=== PATIENT | female | born 1955 | race Caucasian/White ===

== ENCOUNTER 2022-12-20 10:57 | Emergency (ER) | payer MEDICARE ==
[2022-12-20 11:15] VITALS: O2SAT 98
[2022-12-20] MEDS ORDERED: TETANUS/DIPHTHERIA/PERTUSSIS 0.5 ML SYRINGE IM ONE (11:29)
--- NOTE | 2022-12-20 11:33 | ED Physician Documentation ---
PD HPI UPPER EXT INJURY - Stated complaint Stated Complaint: RT PINKY LAC - Chief complaint Chief Complaint: Laceration - History obtained from History obtained from: Patient - Additonal information Additional information: Patient is a 67-year-old presenting for evaluation of laceration to her right pinky finger that occurred this morning while slicing sweet potatoes on a mandolin. She does not take a blood thinner. She is unsure of her last tetanus. She was unable to get the bleeding to stop with several Band-Aids. Review of Systems Skin: reports: Laceration (s) Musculoskeletal: denies: Extremity pain PD PAST MEDICAL HISTORY - Past Medical History Past Medical History: No - Past Surgical History Past Surgical History: Yes Ortho: Shoulder arthroplasty /[employer]: Tubal ligation - Present Medications Home Medications: Ambulatory Orders Medication Instructions Recorded Confirmed No Known Home Medications 12/20/22 12/20/22 - Allergies Allergies/Adverse Reactions: Allergies Allergy/AdvReac Type Severity Reaction Status Date / Time No Known Drug Allergies Allergy Verified 12/20/22 11:10 - Social History Does the pt smoke?: No Smoking Status: Never smoker Does the pt drink ETOH?: No Does the pt have substance abuse?: No PD ED PE NORMAL - General General: Alert and oriented X 3, No acute distress, Well developed/nourished - HEENT HEENT: Atraumatic - Respiratory Respiratory: No respiratory distress - Extremities Extremities: Other (Normal range of motion at all joints, 1 cm avulsion to distal right pinky, no nailbed involvement) Results - Vitals Vitals: Vital Signs - 24 hr 12/20/22 12/20/22 11:04 12:20 Temperature 36.8 C Heart Rate 79 75 Respiratory 15 16 Rate Blood Pressure 142/75 H 134/84 H O2 Saturation 98 98 Oxygen O2 Source Room air Procedures - Laceration (location) R pinky Length in cm: 1 Wound type: Irregular Wound preparation: Hibiclens, Irrigated copiously NS Skin layer closure: Dermabond Other: Patient tolerated well, No complications, Neurovascular intact, Dressing applied, Tetanus booster given PD Medical Decision Making - ED course ED course: Patient with avulsion to distal right pinky finger after cutting it on a mandolin. No signs of bone involvement or nailbed involvement. Not on a blood thinner. She was given a tetanus booster as she is unsure of her last tetanus. Wound was cleaned and closed with Dermabond with hemostasis achieved. Dressing was applied. Patient counseled on continued wound management as well as concerning symptoms to return for. Departure - Departure Disposition: 01 Home, Self Care Clinical Impression: Laceration of right little finger Condition: Stable Instructions: ED Laceration Ext Skin Glue Comments: You have an avulsion to your right pinky finger that was closed with skin glue. We have placed a bulky dressing. Please keep this on for the next 24 hours and then you can remove the dressing. Please take caution as the wound is healing. We have also updated your tetanus. Return to the ER with any worsening symptoms. Forms: PCP List Discharge Date/Time: 12/20/22 12:35
[2022-12-20 12:26] VITALS: BP 134/84
== END 2022-12-20 12:35 | disposition home or self-care (01) ==
LOC: ED 10:57
DX: S61.216A Laceration without foreign body of right little finger without damage to nail, initial encounter (principal); W26.8XXA Contact with other sharp object(s), not elsewhere classified, initial encounter; Y93.G1 Activity, food preparation and clean up; Z23 Encounter for immunization
CPT/HCPCS: 12001; 90471; 99283

== ENCOUNTER 2022-12-24 14:41 | Outpatient (CLI) | payer MEDICARE ==
--- NOTE | 2023-01-01 13:15 | Mammography Report ---
BILATERAL DIGITAL SCREENING MAMMOGRAM 3D/2D: 12/24/2022 CLINICAL: Routine screening. Family history of breast cancer. No prior exams were available for comparison. There are scattered areas of fibroglandular density in both breasts (category b / 25%-50% glandular t issue). There is a focal asymmetry in the left breast at 1 o'clock anterior depth. No other significant masses, calcifications, or other findings are seen in either breast. IMPRESSION: INCOMPLETE: NEEDS ADDITIONAL IMAGING EVALUATION The focal asymmetry in the left breast is indeterminate. Additional views with possible ultrasound a re recommended. Based on the Tyrer Cuzick model (a risk assessment model) the patients lifetime risk is 12.7% and he r 10 year risk is 6.7%. According to the ACR, ACS, and NCCN guidelines, an annual breast MRI exam chavez ng with mammogram is recommended if the patients lifetime risk is 20% or greater. This exam was interpreted at Station ID: [id number]. NOTE: For mammograms, a report in lay terms will be sent to the patient. Approximately 15% of breast malignancies will not be visualized mammographically. In the management of a palpable breast mass, a negative mammogram must not discourage biopsy of a clinically suspicious lesion. Electronically Signed By: Connor Bello M.D. lc/:12/31/2022 16:48:16 ACR BI-RADS Category 0: Incomplete 3340F PARENCHYMAL PATTERN: (A) - The breast(s) demonstrate(s) scattered fibroglandular densities. BI-RADS CATEGORY: (0) - 0 Mammo and [place] [id number] Immediate follow-up LATERALITY: (B)
== END 2022-12-24 14:42 | disposition home or self-care (01) ==
LOC: DI.N 14:41
DX: Z12.31 Encounter for screening mammogram for malignant neoplasm of breast (principal); Z80.3 Family history of malignant neoplasm of breast; R92.323 Mammographic fibroglandular density, bilateral breasts; R92.8 Other abnormal and inconclusive findings on diagnostic imaging of breast

== ENCOUNTER 2023-01-14 07:33 | Outpatient (CLI) | payer MEDICARE ==
--- NOTE | 2023-01-14 13:10 | Ultrasound Report ---
LIMITED ULTRASOUND OF LEFT BREAST: 01/14/2023 CLINICAL: Patient returns today to evaluate a focal asymmetry in the left breast. Comparison is made to exams dated: 01/14/2023 mammogram and 12/24/2022 mammogram - [facility]. Ultrasound of the left breast 12-2 o'clock region was performed. Cr scale images of the real-time examination were reviewed. No significant abnormalities were seen sonographically in the left breast. IMPRESSION: NEGATIVE There is no sonographic evidence of malignancy. There is no abnormality seen in the left breast to correspond with the mammography finding. Return to annual mammogram screening schedule is recommended. This exam was interpreted at Station ID: [id number]. Electronically Signed By: Connor Bello M.D. lc/:01/14/2023 08:45:47 letter sent: No_Letter Ultrasound BI-RADS: 1 Negative BI-RADS CATEGORY: (1) - 1 Mammogram [id number] return to screening LATERALITY: (B)
--- NOTE | 2023-01-14 13:10 | Mammography Report ---
UNILATERAL LEFT DIGITAL DIAGNOSTIC MAMMOGRAM 3D/2D: 01/14/2023 CLINICAL: Patient returns today to evaluate a focal asymmetry in the left breast. Comparison is made to exam dated: 12/24/2022 mammogram - [facility]. There are scattered areas of fibroglandular density in the left breast (category b / 25%-50% glandula r tissue). There is a focal asymmetry in the left breast at 1 o'clock anterior depth. This is less prominent. No other significant masses or calcifications are seen in the breast. IMPRESSION: INCOMPLETE: NEEDS ADDITIONAL IMAGING EVALUATION The focal asymmetry in the left breast is indeterminate. An ultrasound is recommended. Based on the Tyrer Cuzick model (a risk assessment model) the patients lifetime risk is 12.0% and he r 10 year risk is 6.7%. According to the ACR, ACS, and NCCN guidelines, an annual breast MRI exam chavez ng with mammogram is recommended if the patients lifetime risk is 20% or greater. This exam was interpreted at Station ID: [id number]. NOTE: For mammograms, a report in lay terms will be sent to the patient. Approximately 15% of breast malignancies will not be visualized mammographically. In the management of a palpable breast mass, a negative mammogram must not discourage biopsy of a clinically suspicious lesion. Electronically Signed By: Connor Bello M.D. lc/:01/14/2023 08:45:01 ACR BI-RADS Category 0: Incomplete 3340F PARENCHYMAL PATTERN: (A) - The breast(s) demonstrate(s) scattered fibroglandular densities. BI-RADS CATEGORY: (0) - 0 Ultrasound [id number] Immediate follow-up LATERALITY: (B)
== END 2023-01-14 07:34 | disposition home or self-care (01) ==
LOC: DI 07:33
PROVIDERS: ATTEND Internal Medicine
DX: R92.8 Other abnormal and inconclusive findings on diagnostic imaging of breast (principal)

== ENCOUNTER 2023-06-07 12:13 | Outpatient (CLI) | payer MEDICARE ==
--- NOTE | 2023-06-09 10:00 | Mammography Report ---
BILATERAL DIGITAL DIAGNOSTIC MAMMOGRAM 3D/2D: 06/07/2023 CLINICAL: Right nipple skin change and focal pain. Due for bilateral exam. Comparison is made to exams dated: 12/24/2022 mammogram, 01/14/2023 mammogram, and 01/14/2023 ultraso und - [facility]. There are scattered areas of fibroglandular density in both breasts (category b / 25%-50% glandular t issue). No significant masses, calcifications, or other findings are seen in either breast. No mass underlyi ng the clinically abnormal right nipple. Left breast mammogram is stable. IMPRESSION: INCOMPLETE: NEEDS ADDITIONAL IMAGING EVALUATION There is no abnormality seen in the right breast to correspond with the nipple abnormality. Ultrasound is recommended for full evaluation of this area. This was performed immediately following this exam. Based on the Tyrer Cuzick model (a risk assessment model) the patient's lifetime risk is 12.0% and he r 10 year risk is 6.7%. According to the ACR, ACS, and NCCN guidelines, an annual breast MRI exam chavez ng with mammogram is recommended if the patient's lifetime risk is 20% or greater. This exam was interpreted at Station ID: [id number]. NOTE: For mammograms, a report in lay terms will be sent to the patient. Approximately 15% of breast malignancies will not be visualized mammographically. In the management of a palpable breast mass, a negative mammogram must not discourage biopsy of a clinically suspicious lesion. Electronically Signed By: Jeannette hogan/:06/07/2023 13:28:29 ACR BI-RADS Category 0: Incomplete 3340F PARENCHYMAL PATTERN: (A) - The breast(s) demonstrate(s) scattered fibroglandular densities. BI-RADS CATEGORY: (0) - 0 Ultrasound [id number] Immediate follow-up LATERALITY: (B)
--- NOTE | 2023-06-09 10:01 | Ultrasound Report ---
LIMITED ULTRASOUND OF RIGHT BREAST: 06/07/2023 CLINICAL: Intermittent pain in right breast. Comparison is made to exams dated: 06/07/2023 ultrasound, 06/07/2023 mammogram, 01/14/2023 ultrasound, 12/24/2022 mammogram, and 01/14/2023 mammogram - [facility]. Color flow and real-time ultrasound of the right breast retroareolar were performed. Cr scale imag es of the real-time examination were reviewed. No significant abnormalities were seen sonographically involving the right nipple or in the right jose ast. Nipple morphology is similar to the contralateral, normal side. IMPRESSION: INCOMPLETE: NEEDS ADDITIONAL IMAGING EVALUATION No suspicious underlying sonographic findings subjacent to the clinically abnormal right nipple. Page t disease of the nipple is not excluded. Breast MRI is recommended. Clinical follow up with primary d octor or glass edger for topical treatment is also recommended. Findings and recommendations were c onveyed to the patient at time of exam. This exam was interpreted at Station ID: [id number]. Electronically Signed By: Jeannette hogan/:06/07/2023 13:52:59 Ultrasound BI-RADS: 0 Indeterminate BI-RADS CATEGORY: (0) - 0 MRI [id number] Immediate follow-up LATERALITY: (B)
== END 2023-06-07 12:14 | disposition home or self-care (01) ==
LOC: DI 12:13
PROVIDERS: ATTEND Physician Assistant
DX: N64.4 Mastodynia (principal); R92.323 Mammographic fibroglandular density, bilateral breasts

== ENCOUNTER 2023-06-24 12:34 | Outpatient (CLI) | payer MEDICARE ==
[2023-06-24 13:00] LABS: CREATININE 0.9 mg/dL (0.6-1.3)
== END 2023-06-24 12:35 | disposition home or self-care (01) ==
LOC: LAB 12:34
PROVIDERS: ATTEND Internal Medicine
DX: R92.8 Other abnormal and inconclusive findings on diagnostic imaging of breast (principal)
CPT/HCPCS: 36415; 82565

== ENCOUNTER 2023-06-24 12:39 | Outpatient (CLI) | payer MEDICARE ==
[2023-06-24] MEDS ORDERED: GADOTERATE MEGLUMINE 10 MMOL/20 ML VIAL ONE (13:58)
[2023-06-24] MEDS ORDERED: GADOTERATE MEGLUMINE 5 MMOL/10 ML VIAL ONE (13:58)
[2023-06-24] MEDS: GADOTERATE MEGLUMINE 10 MMOL/20 ML VIAL IVP ONE (14:43)
--- NOTE | 2023-06-25 09:56 | MRI Report ---
BREAST MRI OF BOTH BREASTS: 06/24/2023 CLINICAL: Intermittent pain in right breast. PROCEDURE: Breast BL W/WO INDICATIONS: ABN MAMMO CONTRAST: Clariscan 22.8 ML TECHNIQUE: The patient was placed prone in a dedicated breast imaging coil. Precontrast axial STIR and 3D spoil ed GE without fat saturation sequences were obtained. Both before and after bolus injection of contr ast, sequential 1-minute axial 3D spoiled GE with fat saturation sequences for 3 time points, with pugh btraction images and maximum intensity projections (MIP's) generated. Delayed sagittal spoiled GE im ages with fat saturation were also obtained. Computer-aided detection, including computer algorithm analysis of MRI image data for lesion detectio n and characterization, pharmacokinetic analysis, with further physician review for interpretation, w as performed. COMPARISON: Mammogram and ultrasound dated 06/09/2023 FINDINGS: Image quality: Excellent. There is moderate background parenchymal enhancement. Right breast: An enhancing mass is present within the nipple which measures 1.0 x 0.6 x 1.2 cm. No o ther suspicious enhancement or mass lesions in the right breast. Left breast: No suspicious enhancement or mass lesions within the left breast. Miscellaneous: No axillary or intramammary adenopathy. IMPRESSION: SUSPICIOUS OF MALIGNANCY 1. Focal enhancing mass within the right nipple. Surgical biopsy recommended. Electronically Signed By: Delores Brown M.D. lk/:06/24/2023 17:07:55 ACR BI-RADS Category 4b: Suspicious abnormality - intermediate suspicion of malignancy 3344F BI-RADS CATEGORY: (4b) - Mod Susp Biopsy follow-up [id number] Immediate follow-up LATERALITY: (B)
== END 2023-06-24 12:40 | disposition home or self-care (01) ==
LOC: DI 12:39
PROVIDERS: ATTEND Physician Assistant
DX: N64.4 Mastodynia (principal); N63.41 Unspecified lump in right breast, subareolar
CPT/HCPCS: 36415; 77049; 82565; A9575

== ENCOUNTER 2023-08-23 08:04 | Day surgery (SDC) | payer MEDICARE ==
[~2023-08-23 08:04] MED LIST: ACETAMINOPHEN 500 MG TABLET PO ONE; ceFAZolin 2 GM VIAL ONE
[2023-08-23] MEDS: LACTATED RINGERS 1,000 ML IV ONE ×2 (08:15→12:14)
[2023-08-23] MEDS ORDERED: ACETAMINOPHEN 500 MG TABLET PO ONE (08:20)
[2023-08-23] MEDS ORDERED: ceFAZolin 2 GM VIAL ONE (08:20)
[2023-08-23] MEDS ORDERED: fentaNYL 100 MCG/2 ML VIAL ONE ×3 (08:39→11:42)
[2023-08-23] MEDS ORDERED: MIDAZOLAM 2 MG/2 ML VIAL ONE (08:39)
[2023-08-23] MEDS ORDERED: PROPOFOL 200 MG/20 ML VIAL IVP ONE (08:39)
[2023-08-23] MEDS ORDERED: DEXAMETHASONE 4 MG/ML VIAL ONE (08:39)
[2023-08-23] MEDS ORDERED: ONDANSETRON 4 MG/2 ML VIAL ONE (08:39)
[2023-08-23] MEDS ORDERED: diphenhydrAMINE INJ 50 MG/ML VIAL ONE (08:41)
--- NOTE | 2023-08-23 10:01 | ANESTHESIA ---
Pre-Anesthesia VS, & Labs - Diagnosis right breast invasive ductal carcinoma - Procedure lumpectomy Vital Signs: Temp Pulse Resp BP Pulse Ox O2 Flow Rate 36.0 C L 69 14 143/72 H 96 08/23/23 08:26 08/23/23 08:26 08/23/23 08:26 08/23/23 08:26 08/23/23 08:26 Height: 5 ft 3 in Weight (kg): 109.3 kg Body Mass Index: 42.7 BMI Classification: Morbidly Obese - NPO >8 hours - Is Patient ?: No Home Medications and Allergies Allergies/Adverse Reactions: Allergies Allergy/AdvReac Type Severity Reaction Status Date / Time gluten Allergy Unknown Verified 08/20/23 13:07 milk Allergy Unknown Verified 08/20/23 13:07 Anes History & Medical History - Anesthetic History Anesthesia Complications: reports: No previous complications Family history of Anesthesia Complications: Denies - Medical History Cardiovascular: reports: High cholesterol (denies c/p, sob) Pulmonary: reports: None Gastrointestinal: reports: Colon polyps Urinary: reports: None Musculoskeletal: reports: None Endocrine/Autoimmune: reports: None Skin: reports: None Smoking Status: Never smoker Psychosocial: reports: No issues indicated - Surgical History General: reports: Colonoscopy Gynecologic: reports: Hysterectomy, Oophrectomy Orthopedic: reports: Rotator cuff repair Exam General: Alert, Oriented x3 Dental: Dentures full Upper Mouth Openin Fingerbreadth Neck Mobility: Normal Mallampati classification: II Thyromental Distance: 4-6 cm Respiratory: Lungs clear Cardiovascular: Regular rate Plan Anesthesia Type: General Consent for Procedure(s) Verified and Reviewed: Yes Code Status: Attempt Resuscitation ASA classification: 2-Mild systemic disease Is this case an emergency?: No
[2023-08-23] MEDS ORDERED: ONDANSETRON 4 MG/2 ML VIAL IVP PRN ×2 (10:02→12:31)
[2023-08-23] MEDS ORDERED: ATROPINE ABBOJECT 1 MG/10 ML SYRINGE IVP PRN (10:02)
[2023-08-23] MEDS ORDERED: fentaNYL 100 MCG/2 ML VIAL IVP PRN (10:02)
[2023-08-23] MEDS ORDERED: HYDROmorphone 0.5 MG/0.5 ML SYRINGE IVP PRN (10:02)
[2023-08-23] MEDS ORDERED: NALOXONE 0.4 MG/ML VIAL IVP PRN (10:02)
[2023-08-23] MEDS ORDERED: METOCLOPRAMIDE 10 MG/2 ML VIAL IVP PRN (10:02)
[2023-08-23] MEDS ORDERED: MORPHINE 2 MG/ML CARPUJECT IVP PRN (10:02)
[2023-08-23] MEDS ORDERED: ePHEDrine 50 MG/ML VIAL IVP PRN (10:02)
[2023-08-23] MEDS ORDERED: LIDOCAINE 1%-EPI 1:100000 20 ML MDV ONE ×2 (10:03→11:22)
[2023-08-23] MEDS ORDERED: BUPIVACAINE 0.5% PF 10 ML VIAL ONE ×3 (10:03→11:22)
[2023-08-23] MEDS ORDERED: LACTATED RINGERS 1,000 ML IV SCH (11:00)
[2023-08-23] MEDS: BUPIVACAINE 0.5% PF 30 ML VIAL SUBQ ONE ×3 (11:03)
[2023-08-23] MEDS: LIDOCAINE 1%-EPI 1:100000 30 ML MDV SUBQ ONE ×3 (11:03)
[2023-08-23] MEDS ORDERED: ePHEDrine 50 MG/ML VIAL IVP ONE (11:24)
[2023-08-23] MEDS ORDERED: ACETAMINOPHEN 325 MG TABLET PO PRN (12:31)
[2023-08-23] MEDS ORDERED: IBUPROFEN 600 MG TABLET PO PRN (12:31)
--- NOTE | 2023-08-23 12:36 | OPERATIVE REPORT ---
Operative Report - General Procedure Date: 08/23/23 Planned Procedure: right lumpectomy and sentinel lymph node biopsy Pre-Op Diagnosis: invasive ductal carcinoma Procedure Performed: right lumpectomy and sentinel lymph node biopsy Post Op Diagnosis: invasive ductal carcinoma - Procedure Note Primary Surgeon: Dr. Sandra Chaudhari Anesthesia Provider: Raj aJquez CRNA Anesthesia Technique: General LMA, Local Pathology: 1. right lumpectomy (oriented short superior, long lateral, skin anterior) 2. SLN#1, 4073 Estimated Blood Loss (mL): 20 Indications: The patient noticed an abnormal discharge from her right breast and thickening and tenderness in the area. Imaging was unrevealing, however the area continued to appear abnormal. A punch biopsy revealed invasive ductal carcinoma. The patient was seen and evaluated in the clinic where we discussed the risks, benefits, and alternatives of lumpectomy and sentinel lymph node biopsy. Risks include bleeding, infection, damage to surrounding structures, positive margins requiring reexcision, and the possible need for further surgeries or procedures. The patient voiced understanding, her questions were answered, and she wished to proceed.A consent was signed prior to surgery. Findings: 1. Lumpectomy complete with normal-appearing tissue at margins. 2. 1 sentinel lymph node Complications: None - Other Other Information/Narrative: The patient was taken to the operating room and placed in the supine position. Preop antibiotics were given. ERAS medications were given. The patient was p repped and draped in the usual sterile fashion. A preop surgical timeout was performed. Attention was turned to the patient's right breast. An incision was made which incorporated the nipple areolar complex, and was large enough to allow for adequate skin closure. Serrated scissors were used to perform a lumpectomy staying approximately 1 cm away from the skin in the area of the palpable abnormality. The lumpectomy specimen was removed and oriented with suture on the back table, short superior, long lateral, skin anterior. The specimen was not sent to mammography as there was no biopsy clip placed at the time of punch biopsy.The edges of the lumpectomy cavity were inspected and there were no palpable abnormalities. Hemostasis was confirmed. The lumpectomy cavity was irrigated with warm normal saline. Clips were placed in the superior, inferior, medial, lateral, and posterior margins of the lumpectomy cavity. The deep dermal tissues were closed with 3-0 Vicryl in an interrupted fashion. The skin was closed with 4-0 Monocryl in a running subcuticular fashion. Attention was then turned to the right axilla. An incision was made just inferior to the hairline at the area of greatest uptake using the neoprobe device. The incision was made using a 15 blade scalpel and carried down through the skin and subcutaneous tissues to the level of the axillary fascia. The fascia was incised. The sentinel lymph nodes were identified using the neoprobe. Ties were placed proximally and distally to the node and it was removed. The first node had a maximal reading of 4073 on the back table and was noted to be somewhat enlarged, but did not appear or feel abnormal. On further inspection, there were no additional lymph nodes that had at least 10% uptake, 407, and no additional abnormal palpable nodes. Hemostasis was confirmed in the axilla. The deep dermal tissues were closed with 3-0 Vicryl. A 4-0 Monocryl running stitch was placed in a subcuticular fashion. Skin glue was placed over both incisions. The patient tolerated the procedure well. There were no complications. Synoptic Breast SNB - [place] Node Biopsy Operation performed with curative intent: Yes Tracer(s) used to identify sentinel nodes in the upfront surgery (non- neoadjuvant) setting (select all that apply): Radioactive tracer Tracer(s) used to identify sentinel nodes in the neoadjuvant setting (select all that apply): N/A All nodes (colored or non-colored) present at the end of a dye-filled lymphatic channel were removed: N/A All significantly radioactive nodes were removed: Yes All palpably suspicious nodes were removed: Yes Biopsy-proven positive nodes marked with clips prior to chemotherapy were identified and removed: N/A
[2023-08-23 12:45] VITALS: O2SAT 95
[2023-08-23] MEDS ORDERED: oxyCODONE 5 MG TABLET ONE (13:04)
[2023-08-23] MEDS: oxyCODONE 5 MG TABLET PO PRN (13:05)
[2023-08-23 13:42] VITALS: BP 126/62
--- NOTE | 2023-08-23 14:18 | ANESTHESIA POST OP EVALUATION ---
Anesthesia Post Eval - Post Anesthesia Eval Vitals: Last Vital Signs Temp 36.2 C L 08/23/23 13:31 Pulse 77 08/23/23 13:31 Resp 14 08/23/23 13:31 BP 126/62 08/23/23 13:31 Pulse Ox 95 08/23/23 13:31 O2 Flow Rate CV Function Including HR & BP: Stable Pain Control: Satisfactory Nausea & Vomiting: Negative Mental Status: Baseline Respiratory Status: Airway Patent Hydration Status: Satisfactory Anesthesia Complications: None
== END 2023-08-23 08:05 | disposition home or self-care (01) ==
LOC: DI 08:04
PROVIDERS: ATTEND Surgery
PROC: 0HBT0ZZ Excision of Right Breast, Open Approach (ICD-10-PCS; principal; 2023-08-23 10:15)
PROC: 07B50ZX Excision of Right Axillary Lymphatic, Open Approach, Diagnostic (ICD-10-PCS; 2023-08-23 10:15)
DX: C50.011 Malignant neoplasm of nipple and areola, right female breast (principal); C77.3 Secondary and unspecified malignant neoplasm of axilla and upper limb lymph nodes; Z17.0 Estrogen receptor positive status [ER+]; E66.01 Morbid (severe) obesity due to excess calories; Z68.41 Body mass index [BMI] 40.0-44.9, adult